=== PATIENT | male | born 2000 | race Caucasian/White ===

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

== ENCOUNTER 2023-06-30 19:26 | Emergency (ER) | payer BC ==
[2023-06-30 19:54] VITALS: RESP 18; TEMP 98.2
[2023-06-30 20:05] LABS: Basophils % (A) 1 %; Eosinophils # (A) 0.1 k/uL (0-0.7); Eosinophils % (A) 2 %; HCT 43.5 % (39.0-53.0); HGB 14.9 gm/dL (13.0-17.5); Lymphocytes % (A) 42 %; MCH 30.3 pg (25.0-35.0); MCHC 34.2 g/dL (31.0-37.0); MCV 88.6 fL (80.0-100.0); Mean Platelet Volume 8.4; Monocytes # (A) 0.4 k/uL (0-1.0); Monocytes % (A) 6 %; Neutrophils # (A) 3.5 k/uL (1.3-7.7); Neutrophils % (A) 49 %; Platelet Count 194 k/uL (150-450); RBC 4.91 m/uL (4.30-5.90); RDW 12.1 % (11.5-15.5); WBC 7.1 k/uL (3.8-10.6)
[2023-06-30 20:24] LABS: ALT 16 U/L (4-49); AST 24 U/L (17-59); African American GFR (CKD) >90 (>60 ml/min/1.73 sqM); Albumin 4.8 g/dL (3.5-5.0); Alkaline Phosphatase 52 U/L (38-126); Amylase 78 U/L (30-110); Anion Gap 12 mmol/L; Blood Urea Nitrogen 18 mg/dL (9-20); Calcium 9.8 mg/dL (8.4-10.2); Carbon Dioxide 26 mmol/L (22-30); Chloride 101 mmol/L (98-107); Glucose 73 mg/dL (74-99); Lipase 492 U/L (23-300); Non-African American GFR(CKD) >90 (>60 ml/min/1.73 sqM); Potassium 3.9 mmol/L (3.5-5.1); Sodium 139 mmol/L (137-145); Total Bilirubin 0.5 mg/dL (0.2-1.3)
[2023-06-30 20:28] LABS: Partial Thromboplastin Time 26.2 sec (22.0-30.0)
--- NOTE | 2023-06-30 21:46 | ED ---
Chest Pain HPI - General Chief Complaint: Chest Pain Stated Complaint: abd/chest/back pain Time Seen by Provider: 06/30/23 21:31 Source: patient Mode of arrival: ambulatory Limitations: no limitations - History of Present Illness Complaint: chest pain Onset/Timin -: days(s) Onset: during rest Pain Location: epigastric Severity: moderate Quality: aching, sharp Consistency: intermittent Improves With: remaining still Worsens With: movement Treatments Prior to Arrival: none - Related Data Home Medications Medication Instructions Recorded Confirmed No Known Home Medications 11/04/16 03/28/17 Allergies Allergy/AdvReac Type Severity Reaction Status Date / Time amoxicillin [Amoxicillin] Allergy Rash/Hives Verified 06/30/23 19:38 Review of Systems ROS Statement: Those systems with pertinent positive or pertinent negative responses have been documented in the HPI. ROS Other: All systems not noted in ROS Statement are negative. EKG Findings - EKG Results: EKG: interpreted by ERMD, sinus rhythm, normal axis, normal ST/T - Blocks, Ina, Hypertrophy, ST Abn: AV and intraventricular conduction: right bundle branch block (fixed/intermittent, complete/incomplete) (RsR' pattern) Past Medical History Past Medical History: No Reported History Additional Past Medical History / Comment(s): tachycardia with syncope 09/27/19 History of Any Multi-Drug Resistant Organisms: None Reported Past Surgical History: No Surgical Hx Reported Additional Past Surgical History / Comment(s): LT SHOULDER SX Past Anesthesia/Blood Transfusion Reactions: Family History of Problems w/ Anesthesia Additional Past Anesthesia/Blood Transfusion Reaction / Comment(s): MOM HAS PONV Past Psychological History: No Psychological Hx Reported Smoking Status: Never smoker Past Alcohol Use History: Occasional Past Drug Use History: None Reported - Past Family History Mother Family Medical History: No Reported History General Exam Limitations: no limitations General appearance: alert, in no apparent distress Head exam: Present: atraumatic, normocephalic Eye exam: Present: normal appearance. Absent: scleral icterus, conjunctival injection Neck exam: Present: normal inspection Respiratory exam: Present: normal lung sounds bilaterally, chest wall tenderness. Absent: respiratory distress, wheezes, rales, rhonchi, stridor, accessory muscle use Cardiovascular Exam: Present: regular rate, normal rhythm, normal heart sounds. Absent: systolic murmur, diastolic murmur, rubs, gallop GI/Abdominal exam: Present: soft, tenderness (Reproducible tenderness along the costal margin). Absent: distended, guarding, rebound, rigid, mass, pulsatile mass, hernia Extremities exam: Present: normal inspection, normal capillary refill. Absent: pedal edema, calf tenderness Back exam: Present: normal inspection. Absent: CVA tenderness (R), CVA tenderness (L) Neurological exam: Present: alert Skin exam: Present: warm, dry, intact, normal color. Absent: rash Course Vital Signs 06/30/23 06/30/23 06/30/23 19:38 21:56 23:00 Temperature 98.2 F Pulse Rate 71 60 60 Respiratory 18 18 18 Rate Blood Pressure 160/80 134/82 136/80 O2 Sat by Pulse 98 100 100 Oximetry Chest Pain MDM - MDM The patient had chest x-ray which I interpreted as negative for acute infiltrate, pneumothorax, bony trauma. Was pt. sent in by a medical professional or institution (, PA, CONSERVATION ENGINEER, urgent care, hospital, or assisted...) When possible be specific @ -[No] Did you speak to anyone other than the patient for history (EMS, parent, family, police, friend...)? What history was obtained from this source @ -[No] Did you review nursing and triage notes (agree or disagree)? Why? @ -[I reviewed and agree with nursing and triage notes] Were old charts reviewed (outside hosp., previous admission, EMS record, old EKG, old radiological studies, urgent care reports/EKG's, assisted records)? Report findings @ -[No old charts were reviewed] Differential Diagnosis (chest pain, altered mental status, abdominal pain women, abdominal pain men, vaginal bleeding, weakness, fever, dyspnea, syncope, headache, dizziness, GI bleed, back pain, seizure, CVA, palpatations, mental health, musculoskeletal)? @ -[Differential Chest Pain: Stable Angina, Unstable Angina, STEMI, NSTEMI Aortic Dissection, Pneumothorax, Musculoskeletal, Esophageal Spasm GERD, Cholecystitis, Pancreatitis, Zoster, this is not meant to be an all-inclusive list. EKG interpreted by me (3pts min.). @ -[Interpreted As above] X-rays interpreted by me (1pt min.). @ -[I interpreted as above CT interpreted by me (1pt min.). @ -[None done] U/S interpreted by me (1pt. min.). @ -[None done] What testing was considered but not performed or refused? (CT, X-rays, U/S, lab s)? Why? @ -[None] What meds were considered but not given or refused? Why? @ -[None] Did you discuss the management of the patient with other professionals (professionals i.e. DrDalton, PA, CONSERVATION ENGINEER, lab, RT, psych nurse, hospice social worker, header operator, teacher, freedom of information officer, case management associate)? Give summary @ -[No] Was smoking cessation discussed for >3mins.? @ -[No] Was critical care preformed (if so, how long)? @ -[No] Were there social determinants of health that impacted care today? How? (Homelessness, low income, unemployed, alcoholism, drug addiction, transportation, low edu. Level, literacy, decrease access to med. care, group home, rehab)? @ -[No] Was there de-escalation of care discussed even if they declined (Discuss DNR or withdrawal of care, Hospice)? DNR status @ -[No] What co-morbidities impacted this encounter? (DM, HTN, Smoking, COPD, CAD, Cancer, CVA, ARF, Chemo, Hep., AIDS, mental health diagnosis, sleep apnea, morbid obesity)? @ -[None] Was patient admitted / discharged? Hospital course, mention meds given and route, prescriptions, significant lab abnormalities, going to OR and other per tinent info. @ -[The patient is a 22-year-old man who is presenting to have evaluation of chest pain. The workup does reveal minimal elevation of the patient's lipase. Discussed pancreatitis, the appropriate follow-up and return parameters. The patient will follow-up to have the levels retested, he'll return if there is any worsening or no improvement. Undiagnosed new problem with uncertain prognosis? @ -[No] Drug Therapy requiring intensive monitoring for toxicity (Heparin, Nitro, Insulin, Cardizem)? @ -[No] Were any procedures done? @ -[No] Diagnosis/symptom? @ -[Acute chest pain Possible mild pancreatitis Acute, or Chronic, or Acute on Chronic? @ -[Acute Uncomplicated (without systemic symptoms) or Complicated (systemic symptoms)? @ -[Uncomplicated Side effects of treatment? @ -[No] Exacerbation, Progression, or Severe Exacerbation? @ -[No] Poses a threat to life or bodily function? How? (Chest pain, [place], [place], pneumonia, PE, COPD, DKA, ARF, appy, cholecystitis, CVA, Diverticulitis, Homicidal, Suicidal, threat to staff... and all critical care pts) @ -[No] Disposition Clinical Impression: Chest pain Disposition: HOME SELF-CARE Condition: Good Instructions (If sedation given, give patient instructions): Chest Pain (ED) Additional Instructions: Your lipase today was 492, as we discussed, have this rechecked in the next 3-5 days. Avoid alcohol. Is patient prescribed a controlled substance at d/c from ED?: No Referrals: Merari Murillo MD [Primary Care Provider] - 1-2 days
--- NOTE | 2023-06-30 21:57 | XR ---
EXAMINATION TYPE: XR chest 2V DATE OF EXAM: 06/30/2023 COMPARISON: 03/28/2017 HISTORY: 22-year-old male with epigastric pain TECHNIQUE: PA and lateral views FINDINGS: The cardiomediastinal silhouette, aorta, and pulmonary vasculature are within normal limits. Lungs an d pleural spaces are clear. IMPRESSION: No acute cardiopulmonary process.
[2023-06-30 22:25] VITALS: PULSE 60
[2023-06-30 23:14] VITALS: BP 136/80
--- NOTE | 2023-07-01 03:16 | US ---
EXAM: US Abdomen Limited, Right Upper Quadrant CLINICAL HISTORY: ITS.REASON US Reason: attention RUQ TECHNIQUE: Real-time ultrasound of the right upper quadrant with image documentation. COMPARISON: No relevant prior studies available. FINDINGS: Liver: 14.1 cm length. No mass. No intrahepatic bile duct dilation. Gallbladder: Unremarkable. No gallstones. No sonographic Russ's sign. Common bile duct: 4.8 mm diameter. No stones. No dilation. Pancreas: Heterogeneous appearance. Right kidney: 11.94 cm length. No stones. No solid mass. No hydronephrosis. IMPRESSION: Heterogeneous pancreas. Considerations include acute or chronic pancreatitis.
== END 2023-07-01 00:53 | disposition home or self-care (01) ==
LOC: EC 19:26
DX: R07.9 Chest pain, unspecified (principal); Z88.0 Allergy status to penicillin
CPT/HCPCS: 36415; 71046; 76705; 80053; 82150; 83690; 84484; 85025; 85610; 85730; 93005; 99285